=== PATIENT | male | born 1965 | race Hispanic/Latino ===

== ENCOUNTER 2023-07-02 12:26 | Emergency (ER) | payer BC ==
[~2023-07-02] VITALS: Ht 177.8 cm; Wt 104.3 kg
[2023-07-02 13:24] LABS: BASOPHILS # (AUTO) 0.01 K/uL (0.00-0.20); BASOPHILS % (AUTO) 0.3 % (0.0-5.0); EOSINOPHILS # (AUTO) 0.03 K/uL (0.00-0.70); EOSINOPHILS % (AUTO) 0.9 % (0.0-8.0); HEMATOCRIT 44.3 % (42-54); IMMATURE GRANULOCYTE ABSOLUTE 0.02 K/uL (0-1); LYMPHOCYTES # (AUTO) 0.9 K/uL (1.0-4.8); LYMPHOCYTES % (AUTO) 27.4 % (21.0-51.0); MEAN CORPUSCULAR HEMOGLOBIN 31.7 pg (27.0-33.0); MEAN CORPUSCULAR HGB CONC 35.4 g/dL (32.0-36.0); MEAN CORPUSCULAR VOLUME 89.5 fL (79-99); MONOCYTES # (AUTO) 0.4 K/uL (0.1-1.0); MONOCYTES % (AUTO) 11.7 % (3.0-13.0); NEUTROPHILS # (AUTO) 1.9 K/uL (1.8-7.7); NEUTROPHILS % (AUTO) 59.1 % (40.0-77.0); PLATELET COUNT (AUTO) 160 K/uL (130-400); RED BLOOD CELL COUNT(AUTO) 4.95 MIL/uL (4.50-6.20); WHITE BLOOD COUNT (AUTO) 3.3 K/uL (4.8-10.8)
[2023-07-02 13:28] LABS: POTASSIUM 4.3 mmol/L (3.5-5.1)
[2023-07-02 13:33] LABS: ALBUMIN 3.7 g/dL (3.5-5.0); BILIRUBIN,TOTAL 1.4 mg/dL (0.2-1.0); TOTAL PROTEIN, SERUM 7.5 g/dL (6.0-8.3)
[2023-07-02 14:02] VITALS: BP 145/87; PULSE 79; RESP 18; O2SAT 99
== END 2023-07-02 14:03 | disposition home or self-care (01) ==
LOC: EDH 12:26
DX: G61.82 Multifocal motor neuropathy (principal)
CPT/HCPCS: 36415; 70450; 80053; 85025